=== PATIENT | male | born 1985 | race Two or more races ===

== ENCOUNTER 2016-09-06 10:00 | Emergency (ER) | payer OTHER ==
[2016-09-06] MEDS ORDERED: HYDROCODONE/ACETAMINOPHEN 5/325MG TABLET ONE (10:40)
--- NOTE | 2016-09-06 11:29 | RAD ---
Exam: Pelvis and two-view left hip COMPARISON: Lumbar spine 09/23/2011 INDICATION: Forklift backed into patient, painful low back and left hip. FINDINGS: An AP view of the pelvis and AP and frog-leg lateral views of the left hip were obtained. Overall normal bone mineralization. No acute displaced fracture is identified. Hip joint spaces are preserved and symmetric. Femoral heads are normal in contour. Minor asymmetric irregularity is noted along the lateral acetabulum on the left, probably reflecting labral calcifications. Sacroiliac joints are symmetric and within normal limits. Lumbosacral transitional vertebra is again appreciated. IMPRESSION: No acute displaced fracture in the pelvis or left hip. Minor asymmetry along the left acetabulum is noted and may simply reflect labral calcification.
--- NOTE | 2016-09-06 11:30 | RAD ---
Exam: Three-view lumbar spine COMPARISON: 09/23/2011 and MRI 11/18/2011 INDICATION: Forklift backed into patient, pain fell low back and left hip. Findings: AP, lateral and AP angled views of the lumbar spine were obtained. There are 5 nonrib-bearing lumbar vertebra, with a lumbosacral transitional vertebra at L5. There is trace retrolisthesis of L4 and L5. Sagittal alignment is otherwise maintained. There is minor loss of disc height at L4-5 and L5-S1. Vertebral body height and disc spaces otherwise maintained. IMPRESSION: No acute osseous abnormality in the lumbar spine.
== END 2016-09-06 12:09 | disposition home or self-care (01) ==
LOC: EDBD 10:00 → ED 10:00
DX: R20.0 Anesthesia of skin (principal); M54.5 Low back pain; M79.605 Pain in left leg; T14.8 Other injury of unspecified body region; F17.210 Nicotine dependence, cigarettes, uncomplicated
CPT/HCPCS: 73502; 72100; 99283 ×2; A9270

== ENCOUNTER 2016-09-21 08:27 | Emergency (ER) | payer OTHER ==
[2016-09-21] MEDS ORDERED: PREDNISONE 20 MG TABLET ONE (09:49)
[2016-09-21 10:12] LABS: URINE BILIRUBIN NEGATIVE (NEGATIVE); URINE BLOOD TRACE (NEGATIVE); URINE GLUCOSE (UA) NEGATIVE (NEGATIVE); URINE LEUKOCYTE ESTERASE NEGATIVE (NEGATIVE); URINE NITRITE NEGATIVE (NEGATIVE); URINE PROTEIN NEGATIVE (NEGATIVE); URINE UROBILINOGEN NORMAL (0-1 mg/dl)
[2016-09-21 10:15] LABS: URINE APPEARANCE CLEAR; URINE COLOR YELLOW
[2016-09-21 10:17] LABS: URINE RBC 0-1 /hpf
[2016-09-21 10:18] LABS: URINE BACTERIA RARE; URINE EPITHELIAL CELLS 0-1 /hpf; URINE WBC 0-1 /hpf
== END 2016-09-21 10:35 | disposition home or self-care (01) ==
LOC: ED 08:27
DX: M54.42 Lumbago with sciatica, left side (principal); F17.210 Nicotine dependence, cigarettes, uncomplicated
CPT/HCPCS: 81001; 99283 ×2; 51798; J7512